=== PATIENT | female | born 1945 | race Native Hawaiian/Other Pacific Islander ===

== ENCOUNTER 2019-08-06 07:53 | Outpatient (CLI) | payer OTHER | END 2019-08-06 20:54 | disposition home or self-care (01) | LOC: RAD 07:53 → MRI 07:53 | DX: M25.511 Pain in right shoulder (principal); M31.5 Giant cell arteritis with polymyalgia rheumatica; M54.2 Cervicalgia; M79.7 Fibromyalgia; M81.0 Age-related osteoporosis without current pathological fracture; R09.81 Nasal congestion ==